=== PATIENT | female | born 1965 | race American Indian/Alaskan Native ===

== ENCOUNTER 2019-04-15 20:59 | Observation (INO) | payer MEDICARE, MEDICAID ==
[2019-04-15] MEDS ORDERED: Nitroglycerin 2% Ointment Foilpak UD TOP STA (21:26)
--- NOTE | 2019-04-15 21:43 | ED PDOC ---
Arrival/HPI - General Chief Complaint: Chest Pain Time Seen by Provider: 04/15/19 21:05 Historian: Patient - History of Present Illness Narrative History of Present Illness (Text): 04/15/19 21:38 54 year old female, whose past medical history includes hypertension, presents to the emergency department with complaint of chest pain, since 20:00. Patient informs pain is sharp and located at the right side of her chest. Patient denies any associated shortness of break, back pain, fever, chills, cough, abdominal pain, nausea, vomiting, diarrhea, headache, dizziness, or any other complaint. Time/Duration: 1-3 hours Symptom Onset: Gradual Symptom Course: Unchanged Quality: Stabbing Activities at Onset: Light Context: Home Past Medical History - Provider Review Nursing Documentation Reviewed: Yes - Cardiac Hx Cardiac Disorders: No - Pulmonary Hx Respiratory Disorders: No - HEENT Hx HEENT Disorder: No - Psychiatric Hx Psychophysiologic Disorder: Yes Hx Anxiety: Yes Hx Depression: Yes Hx Substance Use: No Family/Social History - Physician Review Nursing Documentation Reviewed: Yes Family/Social History: No Known Family HX Smoking Status: Never Smoked Hx Alcohol Use: No Hx Substance Use: No Allergies/Home Meds Allergies/Adverse Reactions: Allergies No Known Allergies Allergy (Verified 04/15/19 21:08) Home Medications: Home Meds Medication Instructions Recorded Confirmed Unobtainable 04/15/19 04/15/19 Review of Systems - Physician Review All systems were reviewed & negative as marked: Yes - Review of Systems Constitutional: absent: Fevers, Night Sweats Respiratory: absent: SOB, Cough Cardiovascular: Chest Pain Gastrointestinal: absent: Abdominal Pain, Diarrhea, Nausea, Vomiting Musculoskeletal: absent: Back Pain Neurological: absent: Headache, Dizziness Physical Exam Vital Signs Reviewed: Yes Vital Signs Pulse Resp BP Pulse Ox 04/15/19 21:08 69 20 182/101 H 99 Blood Pressure: Hypertensive Pulse: Regular Respiratory Rate: Normal Appearance: Positive for: Well-Appearing, Non-Toxic, Comfortable Pain Distress: None Mental Status: Positive for: Alert and Oriented X 3 - Systems Exam Head: Present: Atraumatic, Normocephalic Pupils: Present: PERRL Extroacular Muscles: Present: EOMI Conjunctiva: Present: Normal Mouth: Present: Moist Mucous Membranes Neck: Present: Normal Range of Motion Respiratory/Chest: Present: Clear to Auscultation, Good Air Exchange. No: Respiratory Distress, Accessory Muscle Use Cardiovascular: Present: Regular Rate and Rhythm, Normal S1, S2. No: Murmurs Abdomen: No: Tenderness, Distention, Peritoneal Signs Back: Present: Normal Inspection Upper Extremity: Present: Normal Inspection. No: Cyanosis, Edema Lower Extremity: Present: Normal Inspection. No: Edema Neurological: Present: GCS=15, CN II-XII Intact, Speech Normal Skin: Present: Warm, Dry, Normal Color. No: Rashes Psychiatric: Present: Alert, Oriented x 3, Normal Insight, Normal Concentration Medical Decision Making ED Course and Treatment: 04/15/19 21:41 Impression: 54 year old female presents with chest pain. Plan: -- EKG -- Cardiac Iso, CMP -- CBC, Platelets -- Chest X-ray -- Aspirin -- NTG 2% -- Reassess and disposition Prior Visits: Notes and results from previous visits were reviewed. Progress Notes: EKG reviewed by me, shows: Normal sinus rhythm @ 63bpm Questionable anterior infarct Nonspecific STT wave changes - RAD Interpretation Radiology Orders: 04/15/19 21:25 CHEST PORTABLE [RAD] Stat - Medication Orders Current Medication Orders: Discontinued Medications Aspirin (Aspirin) 325 mg PO ONCE STA Stop: 04/15/19 21:27 Nitroglycerin (Nitro-Bid 2% Oint) 1 ea TOP ONCE STA Stop: 04/15/19 21:27 - Scribe Statement The provider has reviewed the documentation as recorded by the Scribe Lucien Bauer Provider Scribe Attestation: All medical record entries made by the Scribe were at my direction and personally dictated by me. I have reviewed the chart and agree that the record accurately reflects my personal performance of the history, physical exam, medical decision making, and the department course for this patient. I have also personally directed, reviewed, and agree with the discharge instructions and disposition. Disposition/Present on Arrival - Present on Arrival Any Indicators Present on Arrival: No History of DVT/PE: No History of Uncontrolled Diabetes: No Urinary Catheter: No History of Decub. Ulcer: No History Surgical Site Infection Following: None - Disposition Have Diagnosis and Disposition been Completed?: Yes Diagnosis: Chest pain Disposition: HOSPITALIZED Disposition Time: 00:52 Condition: STABLE Discharge Instructions (ExitCare): Chest Pain (ED) Referrals: PCP,NO [Primary Care Provider] - Follow up with primary Forms: [employer] (Latvian)
[2019-04-15 21:53] LABS: HEMOGLOBIN 10.9 g/dL (12.0-16.0); MEAN CELL VOLUME 93.4 fl (80.0-105.0); MEAN CORPUSCULAR HGB CONC 31.1 g/dl (31.0-37.0); MEAN PLATELET VOLUME 9.7 fl (7.0-11.0); RBC 3.76 10^6/uL (3.5-6.1); WHITE BLOOD COUNT 5.9 10^3/uL (4.5-11.0)
[2019-04-15 22:05] LABS: ALBUMIN 3.8 g/dL (3.0-4.8); BLOOD UREA NITROGEN 13 mg/dL (7-21); CALCIUM 9.2 mg/dL (8.4-10.5); GFR NON-AFRICAN AMERICAN > 60
[2019-04-15 22:07] LABS: INR 1.05; PARTIAL THROMBOPLASTIN TIME 32.5 Seconds (26.9-38.3); PROTHROMBIN TIME 11.6 SECONDS (9.4-12.5)
[2019-04-15 22:13] LABS: ALT/SGPT 12 U/L (7-56); AST/SGOT 30 U/L (14-36)
[2019-04-15 22:17] LABS: TROPONIN I < 0.01 ng/mL
--- NOTE | 2019-04-16 00:55 | CP.PCM.HP ---
<Clifton Rosario - Last Filed: 04/16/19 01:18> History of Present Illness - History of Present Illness History of Present Illness: Clifton Rosario, PGY1 H&P for Dr. Duran cc: right sided chest pain Patient is a 54 year old female, whose PMHx includes HTN presents to the emergency department with the complaint of right sided chest pain earlier this evening. Patient says chest pain is sharp and located at the right side of her chest with no radiation. She denies any associated shortness of breath. Patient says she was at rest when the pain started. She denies sick contacts or flu-like symptoms. She denies lightheadedness, dizziness, headache, fever, chills, n/v/d, abdominal pain, sob, bowel/bladder changes. No prior hospitalizations at [facility]. She denies any cardiac stents/surgeries in the past. Since arrival, patient said her chest pain has improved. A full 12 point ROS was conducted and unremarkable except as stated above. PMD: Dr. Phillips PMHx: HTN PSHx: foot surgery (many years ago) Meds: unobtainable at this time. Daughter is bringing home meds after interview. Allergies: NKDA SocialHx: denies EtOH, tobacco, and illicit drug use. FamHx: unspecified heart disease in family Present on Admission - Present on Admission Any Indicators Present on Admission: No Review of Systems - Review of Systems All systems: reviewed and no additional remarkable complaints except (as per HPI) Past Patient History - Past Social History Smoking Status: Never Smoked - CARDIAC Hx Cardiac Disorders: No - PULMONARY Hx Respiratory Disorders: No - HEENT Hx HEENT Problems: No - PSYCHIATRIC Hx Psychophysiologic Disorder: Yes Hx Anxiety: Yes Hx Depression: Yes Hx Substance Use: No Meds Allergies/Adverse Reactions: Allergies Allergy/AdvReac Type Severity Reaction Status Date / Time No Known Allergies Allergy Verified 04/15/19 21:08 Physical Exam - Constitutional Appears: No Acute Distress - Head Exam Head Exam: ATRAUMATIC, NORMAL INSPECTION, NORMOCEPHALIC - Eye Exam Eye Exam: EOMI, Normal appearance - ENT Exam ENT Exam: Mucous Membranes Moist - Respiratory Exam Respiratory Exam: Clear to Auscultation Bilateral, NORMAL BREATHING PATTERN. absent: Accessory Muscle Use, Chest Wall Tenderness, Rales, Rhonchi, Wheezes, Respiratory Distress - Cardiovascular Exam Cardiovascular Exam: REGULAR RHYTHM, RRR, +S1, +S2 - GI/Abdominal Exam GI & Abdominal Exam: Normal Bowel Sounds, Soft. absent: Firm, Guarding, Rebou nd, Rigid, Tenderness - Extremities Exam Extremities exam: Positive for: normal capillary refill, normal inspection, pedal pulses present - Back Exam Back exam: NORMAL INSPECTION - Neurological Exam Neurological exam: Alert, CN II-XII Intact, Oriented x3, Reflexes Normal - Psychiatric Exam Psychiatric exam: Normal Affect, Normal Mood - Skin Skin Exam: Dry, Intact, Normal Color, Warm Results - Vital Signs Recent Vital Signs: Last Vital Signs Temp Pulse 70 04/15/19 23:32 Resp 18 04/15/19 23:32 BP 138/94 H 04/15/19 23:32 Pulse Ox 98 04/15/19 23:32 - Labs Result Diagrams: 04/15/19 21:45 04/15/19 21:45 Labs: Laboratory Results - last 24 hr 04/15/19 04/15/19 04/15/19 21:45 21:45 21:45 WBC 5.9 RBC 3.76 Hgb 10.9 L Hct 35.1 L MCV 93.4 MCH 29.0 MCHC 31.1 RDW 13.0 Plt Count 286 MPV 9.7 PT 11.6 INR 1.05 APTT 32.5 Sodium 141 Potassium 4.0 Chloride 104 Carbon Dioxide 30 Anion Gap 11 BUN 13 Creatinine 0.8 Est GFR ( Amer) > 60 Est GFR (Non-Af Amer) > 60 Random Glucose 99 Calcium 9.2 Total Bilirubin 0.4 AST 30 ALT 12 Alkaline Phosphatase 75 Lactate Dehydrogenase 537 Total Creatine Kinase 43 Troponin I < 0.01 Total Protein 7.8 Albumin 3.8 Globulin 4.0 Albumin/Globulin Ratio 1.0 L Assessment & Plan - Assessment and Plan (Free Text) Assessment: Patient is a 54 year old female, whose PMHx includes HTN presents to the emerg ency department with the complaint of right sided chest pain earlier this evening. Plan: Chest Pain - r/o ACS - Atypical chest pain, R-sided, however +risk factors for HTN, FamHx - Initial toponin negative x1; serial troponins q6 - TSH - Hgb A1c - Lipid Panel - ASA 81mg PO daily - Cardio consulted (Dr. Rnedon) - serial EKG in morning - EKG: NSR at [address] or T wave changes. - CXR: no active disease - HHD HTN - Resume home BP meds once confirmed/brought in by daughter ppx: - scd Diet: HHD Dispo: will admit patient to remote [facility] for monitoring. Case was discussed and reviewed with Attending Physician, Dr. Duran. <Jose Duran - Last Filed: 04/16/19 19:03> Results - Vital Signs Recent Vital Signs: Last Vital Signs Temp 97.8 F 04/16/19 12:00 Pulse 65 04/16/19 13:37 Resp 18 04/16/19 15:30 BP 147/90 04/16/19 15:30 Pulse Ox 96 04/16/19 09:00 - Labs Result Diagrams: 04/16/19 06:30 04/16/19 06:30 Labs: Laboratory Results - last 24 hr 04/15/19 04/15/19 04/15/19 21:45 21:45 21:45 WBC 5.9 RBC 3.76 Hgb 10.9 L Hct 35.1 L MCV 93.4 MCH 29.0 MCHC 31.1 RDW 13.0 Plt Count 286 MPV 9.7 PT 11.6 INR 1.05 APTT 32.5 Sodium 141 Potassium 4.0 Chloride 104 Carbon Dioxide 30 Anion Gap 11 BUN 13 Creatinine 0.8 Est GFR ( Amer) > 60 Est GFR (Non-Af Amer) > 60 Random Glucose 99 Hemoglobin A1c Calcium 9.2 Total Bilirubin 0.4 AST 30 ALT 12 Alkaline Phosphatase 75 Lactate Dehydrogenase 537 Total Creatine Kinase 43 Troponin I < 0.01 Total Protein 7.8 Albumin 3.8 Globulin 4.0 Albumin/Globulin Ratio 1.0 L Triglycerides Cholesterol LDL Cholesterol Direct HDL Cholesterol TSH 3rd Generation 04/16/19 04/16/19 04/16/19 02:01 06:30 06:30 WBC 5.7 RBC 3.71 Hgb 10.5 L Hct 34.6 L MCV 93.3 MCH 28.3 MCHC 30.3 L RDW 13.3 Plt Count 268 MPV 9.7 PT INR APTT Sodium 141 Potassium 3.9 Chloride 104 Carbon Dioxide 32 Anion Gap 9 L BUN 12 Creatinine 0.8 Est GFR ( Amer) > 60 Est GFR (Non-Af Amer) > 60 Random Glucose 107 Hemoglobin A1c Calcium 9.1 Total Bilirubin 0.2 AST 21 ALT 14 Alkaline Phosphatase 67 Lactate Dehydrogenase Total Creatine Kinase Troponin I < 0.01 Total Protein 7.4 Albumin 3.7 Globulin 3.7 Albumin/Globulin Ratio 1.0 L Triglycerides 95 Cholesterol 132 LDL Cholesterol Direct 66 HDL Cholesterol 31 TSH 3rd Generation 04/16/19 04/16/19 04/16/19 06:30 06:30 08:00 WBC RBC Hgb Hct MCV MCH MCHC RDW Plt Count MPV PT INR APTT Sodium Potassium Chloride Carbon Dioxide Anion Gap BUN Creatinine Est GFR ( Amer) Est GFR (Non-Af Amer) Random Glucose Hemoglobin A1c 6.7 H Calcium Total Bilirubin AST ALT Alkaline Phosphatase Lactate Dehydrogenase Total Creatine Kinase Troponin I < 0.01 Total Protein Albumin Globulin Albumin/Globulin Ratio Triglycerides Cholesterol LDL Cholesterol Direct HDL Cholesterol TSH 3rd Generation 1.98 Attending/Attestation - Attestation I have personally seen and examined this patient.: Yes I have fully participated in the care of the patient.: Yes I have reviewed all pertinent clinical information: Yes Notes (Text): 04/16/19 19:03 Seen and examined. Discussed with resident. A&P as above.
[2019-04-16 07:09] LABS: HEMOGLOBIN 10.5 g/dL (12.0-16.0); MEAN CELL VOLUME 93.3 fl (80.0-105.0); MEAN CORPUSCULAR HEMOGLOBIN 28.3 pg (25.0-35.0); MEAN CORPUSCULAR HGB CONC 30.3 g/dl (31.0-37.0); MEAN PLATELET VOLUME 9.7 fl (7.0-11.0); RBC 3.71 10^6/uL (3.5-6.1); RED CELL DISTRIBUTION WIDTH 13.3 % (11.5-14.5); WHITE BLOOD COUNT 5.7 10^3/uL (4.5-11.0)
[2019-04-16 07:20] LABS: ALBUMIN 3.7 g/dL (3.0-4.8); ALT/SGPT 14 U/L (7-56); AST/SGOT 21 U/L (14-36); BLOOD UREA NITROGEN 12 mg/dL (7-21); CALCIUM 9.1 mg/dL (8.4-10.5); GFR NON-AFRICAN AMERICAN > 60; HDL CHOLESTEROL 31 mg/dL (29-60)
[2019-04-16 07:28] LABS: LDL CHOLESTEROL 66 mg/dL (0-129)
--- NOTE | 2019-04-16 08:22 | RAD ---
Date of service: 04/15/2019 HISTORY: chest pain COMPARISON: No prior. TECHNIQUE: 1 view obtained. FINDINGS: LUNGS: Patient slightly rotated toward the left accentuating right hilar vascular markings somewhat. Limited patchy airspace disease seen at the medial right base and possibly at the medial left retrocardiac left lower lobe. Remaining lung grant are clear. PLEURA: No significant pleural effusion identified, no pneumothorax apparent. CARDIOVASCULAR: No aortic atherosclerotic calcification present. Normal cardiac size. No pulmonary vascular congestion. OSSEOUS STRUCTURES: No significant abnormalities. VISUALIZED UPPER ABDOMEN: Normal. OTHER FINDINGS: None. IMPRESSION: Limited patchy density medial right base and potentially left lower lobe base. This is a nonspecific pattern could reflect atelectasis though early infiltrates not excluded. Clinically correlate further. No pulmonary vascular congestion.
[2019-04-16] MEDS ORDERED: buPROPion 300 mg/24 Hours XL Tab PO SCH (10:00)
--- NOTE | 2019-04-16 10:53 | CARD ---
APPROVED REPORT Date of service: 04/15/2019 EKG Measurement Heart [id number] CO [id number] <Conclusion> Normal sinus rhythm Poor R wave progression in Precordial leads Abnormal ECG
[2019-04-16 12:26] VITALS: PULSE 65; TEMP 97.8
--- NOTE | 2019-04-16 14:32 | CP.PCM.DIS ---
<Ric Hook - Last Filed: 04/16/19 14:17> Provider - Provider Date of Admission: 04/16/19 00:51 Attending physician: Regine Lyon MD Primary care physician: NO PRIMARY CARE PROVIDER Consults: 04/16/19 01:05 Physician Consult Routine Comment: Consulting Provider: Lucien Rendon Consulting Physician: Lucien Rendon Reason for Consult: cp - r/o ACS Time Spent in preparation of Discharge (in minutes): 35 Hospital Course - Lab Results Lab Results: Most Recent Lab Values WBC 5.7 10^3/uL (4.5-11.0) 04/16/19 06:30 RBC 3.71 10^6/uL (3.5-6.1) 04/16/19 06:30 Hgb 10.5 g/dL (12.0-16.0) L 04/16/19 06:30 Hct 34.6 % (36.0-48.0) L 04/16/19 06:30 MCV 93.3 fl (80.0-105.0) 04/16/19 06:30 MCH 28.3 pg (25.0-35.0) 04/16/19 06:30 MCHC 30.3 g/dl (31.0-37.0) L 04/16/19 06:30 RDW 13.3 % (11.5-14.5) 04/16/19 06:30 Plt Count 268 10^3/uL (120.0-450.0) 04/16/19 06:30 MPV 9.7 fl (7.0-11.0) 04/16/19 06:30 PT 11.6 SECONDS (9.4-12.5) 04/15/19 21:45 INR 1.05 04/15/19 21:45 APTT 32.5 Seconds (26.9-38.3) 04/15/19 21:45 Sodium 141 mmol/L (132-148) 04/16/19 06:30 Potassium 3.9 mmol/L (3.6-5.0) 04/16/19 06:30 Chloride 104 mmol/L (98-107) 04/16/19 06:30 Carbon Dioxide 32 mmol/L (21-33) 04/16/19 06:30 Anion Gap 9 (10-20) L 04/16/19 06:30 BUN 12 mg/dL (7-21) 04/16/19 06:30 Creatinine 0.8 mg/dl (0.7-1.2) 04/16/19 06:30 Est GFR ( Amer) > 60 04/16/19 06:30 Est GFR (Non-Af Amer) > 60 04/16/19 06:30 Random Glucose 107 mg/dL (70-110) 04/16/19 06:30 Hemoglobin A1c 6.7 % (4.2-6.5) H 04/16/19 06:30 Calcium 9.1 mg/dL (8.4-10.5) 04/16/19 06:30 Total Bilirubin 0.2 mg/dL (0.2-1.3) 04/16/19 06:30 AST 21 U/L (14-36) 04/16/19 06:30 ALT 14 U/L (7-56) 04/16/19 06:30 Alkaline Phosphatase 67 U/L (38-126) 04/16/19 06:30 Lactate Dehydrogenase 537 U/L (333-699) 04/15/19 21:45 Total Creatine Kinase 43 U/L (35-230) 04/15/19 21:45 Troponin I < 0.01 ng/mL 04/16/19 08:00 Total Protein 7.4 g/dL (5.8-8.3) 04/16/19 06:30 Albumin 3.7 g/dL (3.0-4.8) 04/16/19 06:30 Globulin 3.7 gm/dL 04/16/19 06:30 Albumin/Globulin Ratio 1.0 (1.1-1.8) L 04/16/19 06:30 Triglycerides 95 mg/dL (35-160) 04/16/19 06:30 Cholesterol 132 mg/dL (130-200) 04/16/19 06:30 LDL Cholesterol Direct 66 mg/dL (0-129) 04/16/19 06:30 HDL Cholesterol 31 mg/dL (29-60) 04/16/19 06:30 TSH 3rd Generation 1.98 mIU/mL (0.46-4.68) 04/16/19 06:30 - Hospital Course Hospital Course: 54 year old female with past medical history of HTN, anxiety, depression, seizure disorder who presented to [facility] ED complaining of right sided chest pain. She reported acute onset and history of 6 hours prior to arrival. Patient reported chest pain improved upon arrival. Patient was evaluated in ED and found to have initial negative troponin and EKG without significant ST elevation/depression. Chest xray was done showin limited patchy density medial right base and potentially left lower lobe base. This is a nonspecific pattern questionable for atelectasis, no pulmonary vascular congestion. Patient JOSE index score was 1. Patient was admitted for chest pain rule out ACS. Patient troponin negative x 3 without significant events on telemetry. Patient was evaluated by cardiology and deemed stable for discharge with plan for outpatient stress test which was scheduled. Patient home medications were restarted as well as home lisinopril 10mg. Patient BP was monitored and noted to be slightly elevated at systolic 152. Patient was asymptomatic and continuous improved chest discomfort from admission. Patient was instructed to keep a blood pressure log and to restart home Lisinopril 10mg PO Daily. Patient was deemed hemodynamically stable for discharge. Discharge planning including medication reconciliation, outpatient follow up with primary care physician and cardiology, as well as signs and symptoms for return to the nearest emergency department were discussed in detail. Patient was in understanding and in agreement. This is a brief summary of the patients stay, see chart for full details. Discharge Exam - Head Exam Head Exam: ATRAUMATIC, NORMAL INSPECTION, NORMOCEPHALIC - Eye Exam Eye Exam: EOMI, PERRL - ENT Exam ENT Exam: Mucous Membranes Moist - Neck Exam Neck exam: Full Rom - Respiratory Exam Respiratory Exam: Clear to PA & Lateral, NORMAL BREATHING PATTERN, UNREMARKABLE - Cardiovascular Exam Cardiovascular Exam: REGULAR RHYTHM, +S1, +S2. absent: Systolic Murmur - GI/Abdominal Exam GI & Abdominal Exam: Normal Bowel Sounds, Soft. absent: Tenderness - Extremities Exam Extremities exam: full ROM, normal inspection - Neurological Exam Neurological exam: Alert, CN II-XII Intact, Normal Gait, Oriented x3, Reflexes Normal - Psychiatric Exam Psychiatric exam: Normal Affect, Normal Mood - Skin Skin Exam: Dry, Intact Discharge Plan - Discharge Medications Prescriptions: Lisinopril [Zestril] 10 mg PO DAILY #30 tab - Follow Up Plan Condition: STABLE Disposition: HOME/ ROUTINE Instructions: High Blood Pressure in Adults, Cardiac Stress Test, Heart Healthy Diet, Chest Pain (GEN) Additional Instructions: Follow up with primary care physician Dr. Francis Roper within 7-10 days upon discharge Continue taking medications as prescribed to you Restart taking your home Lisinopril 10mg PO Daily Follow up with Cardiology and Dr. Rendon for outpatient stress test for further evaluation. Outpatient stress test is scheduled for: April 29, 2019. If you experience chest pain, significant shortness of breath, unrelenting fever and palpitations return to the nearest ED for evaluation. Diet: heart healthy diet Patient refuses the flu and the pneumococcal vaccines. Referrals: Alan Roper MD [Staff Provider] - Lucien Rendon MD [Staff Provider] - <Regine Lyon - Last Filed: 04/17/19 15:05> Provider - Provider Date of Admission: 04/16/19 00:51 Attending physician: Regine Lyon MD Primary care physician: NO PRIMARY CARE PROVIDER Consults: 04/16/19 01:05 Physician Consult Routine Comment: Consulting Provider: Lucien Rendon Consulting Physician: Lucien Rendon Reason for Consult: cp - r/o ACS Hospital Course - Lab Results Lab Results: Most Recent Lab Values WBC 5.7 10^3/uL (4.5-11.0) 04/16/19 06:30 RBC 3.71 10^6/uL (3.5-6.1) 04/16/19 06:30 Hgb 10.5 g/dL (12.0-16.0) L 04/16/19 06:30 Hct 34.6 % (36.0-48.0) L 04/16/19 06:30 MCV 93.3 fl (80.0-105.0) 04/16/19 06:30 MCH 28.3 pg (25.0-35.0) 04/16/19 06:30 MCHC 30.3 g/dl (31.0-37.0) L 04/16/19 06:30 RDW 13.3 % (11.5-14.5) 04/16/19 06:30 Plt Count 268 10^3/uL (120.0-450.0) 04/16/19 06:30 MPV 9.7 fl (7.0-11.0) 04/16/19 06:30 PT 11.6 SECONDS (9.4-12.5) 04/15/19 21:45 INR 1.05 04/15/19 21:45 APTT 32.5 Seconds (26.9-38.3) 04/15/19 21:45 Sodium 141 mmol/L (132-148) 04/16/19 06:30 Potassium 3.9 mmol/L (3.6-5.0) 04/16/19 06:30 Chloride 104 mmol/L (98-107) 04/16/19 06:30 Carbon Dioxide 32 mmol/L (21-33) 04/16/19 06:30 Anion Gap 9 (10-20) L 04/16/19 06:30 BUN 12 mg/dL (7-21) 04/16/19 06:30 Creatinine 0.8 mg/dl (0.7-1.2) 04/16/19 06:30 Est GFR ( Amer) > 60 04/16/19 06:30 Est GFR (Non-Af Amer) > 60 04/16/19 06:30 Random Glucose 107 mg/dL (70-110) 04/16/19 06:30 Hemoglobin A1c 6.7 % (4.2-6.5) H 04/16/19 06:30 Calcium 9.1 mg/dL (8.4-10.5) 04/16/19 06:30 Total Bilirubin 0.2 mg/dL (0.2-1.3) 04/16/19 06:30 AST 21 U/L (14-36) 04/16/19 06:30 ALT 14 U/L (7-56) 04/16/19 06:30 Alkaline Phosphatase 67 U/L (38-126) 04/16/19 06:30 Lactate Dehydrogenase 537 U/L (333-699) 04/15/19 21:45 Total Creatine Kinase 43 U/L (35-230) 04/15/19 21:45 Troponin I < 0.01 ng/mL 04/16/19 08:00 Total Protein 7.4 g/dL (5.8-8.3) 04/16/19 06:30 Albumin 3.7 g/dL (3.0-4.8) 04/16/19 06:30 Globulin 3.7 gm/dL 04/16/19 06:30 Albumin/Globulin Ratio 1.0 (1.1-1.8) L 04/16/19 06:30 Triglycerides 95 mg/dL (35-160) 04/16/19 06:30 Cholesterol 132 mg/dL (130-200) 04/16/19 06:30 LDL Cholesterol Direct 66 mg/dL (0-129) 04/16/19 06:30 HDL Cholesterol 31 mg/dL (29-60) 04/16/19 06:30 TSH 3rd Generation 1.98 mIU/mL (0.46-4.68) 04/16/19 06:30 Attending/Attestation - Attestation I have personally seen and examined this patient.: Yes I have fully participated in the care of the patient.: Yes I have reviewed all pertinent clinical information, including history, physical exam and plan: Yes Notes (Text): 04/17/19 15:03 Medical record note made by the resident after discussion with my direction and input after the patient was personally seen and examined by me. I have reviewed the chart and agree that the record accurately reflects by personal performance of the history, physical exam, data review, and medical decision-making, in the course for the patient. I have also personally directed the plan of care. 54 year old female with past medical history of HTN, anxiety, depression, seizure disorder who presented to [facility] ED complaining of right sided chest pain.Patient has chest wall tenderness. EKG was negative for acute ischemic changes.Serial troponins are normal. Patient is pain free.She was evaluated by cardiology and outpatient stress test is recommended. She will be discharged home and will follow up with PMD and will have stress test as out patient. Management plan was discussed in detail with patient. Education was provided.
[2019-04-16 14:55] VITALS: O2SAT 96
[2019-04-16 15:57] VITALS: BP 147/90; RESP 18
--- NOTE | 2019-04-16 20:36 | CARD ---
APPROVED REPORT Date of service: 04/16/2019 EKG Measurement Heart [id number] MA [id number] <Conclusion> Normal sinus rhythm Normal ECG
[2019-04-16] MEDS ORDERED: Divalproex 500 mg ER (ONCE DAILY formulation) PO SCH (22:00)
[2019-04-16] MEDS ORDERED: Divalproex 250 mg ER (ONCE DAILY formulation) PO SCH (22:00)
--- NOTE | 2019-04-17 09:49 | CON ---
DATE OF CONSULTATION: 04/16/2019 CARDIOLOGY CONSULTATION HISTORY: The patient is a 54-year-old woman, who presents with atypical pleuritic-like right-sided chest discomfort, which is now resolved. Her symptoms are increased with inspiration The patient's past medical history includes hypertension. The patient has no previous cardiac history. Denies angina. She is currently on Zestril at home and has been treated for hypercholesterolemia. SOCIAL HISTORY: The patient denies smoking. REVIEW OF SYSTEMS: All negative for cardiac symptomatology. PHYSICAL EXAMINATION: VITAL SIGNS: Blood pressure 155/82, the heart rate is in the 60s. NECK: Negative JVD. LUNGS: Without rales. CARDIAC: Heart rate S1, S2. EXTREMITIES: Without edema. LABORATORY DATA: EKG shows no acute changes. Laboratories: Hemoglobin is 10.85. Troponins are negative x3. IMPRESSION: 1. Atypical chest pain. 2. Hypertension. 3. Anemia. 4. No evidence for acute coronary syndrome. PLAN: Given these findings, the patient's chest pain is inconsistent with coronary ischemia. There is no evidence of coronary syndrome. We will DC telemetry today. We will arrange for an outpatient stress test. Lucien Rendon MD
== END 2019-04-16 17:57 | disposition home or self-care (01) ==
LOC: ED 20:59 → ERH 04-16 00:51 → 2RNO 04-16 02:06
PROVIDERS: ADMIT Internal Medicine; ATTEND Internal Medicine
DX: R07.89 Other chest pain (principal); I10 Essential (primary) hypertension; E78.00 Pure hypercholesterolemia, unspecified; D64.9 Anemia, unspecified; G40.909 Epilepsy, unspecified, not intractable, without status epilepticus; F32.9 Major depressive disorder, single episode, unspecified; F41.9 Anxiety disorder, unspecified
CPT/HCPCS: 36415; 71045; 80053; 80061; 82550; 83036; 83615; 84443; 84484; 85027; 85610; 85730; 93005; 99285; G0378